=== PATIENT | female | born 1950 | race Caucasian/White ===

== ENCOUNTER → 2018-10-05 | Outpatient (CLI) | payer MEDICARE ==
[~2018-10-05] MED LIST: ASPI-1197 PO; BUPR300T54 PO; CYAN100099 PO; DIAZ5TAB4 PO; GABA-529 PO; PANT40TA25 PO; POTA-79 PO; ROPI1TAB11 PO
== END | disposition home or self-care (01) ==
LOC: SHCH 12:37
PROVIDERS: ATTEND Internal Medicine Cardiovascular Disease
DX: I07.1 Rheumatic tricuspid insufficiency (principal)
CPT/HCPCS: 93306

== ENCOUNTER → 2018-10-11 | Outpatient (CLI) | payer MEDICARE ==
[~2018-10-11] VITALS: Ht 162.6 cm; Wt 91.6 kg
[~2018-10-11] MED LIST changes: +REGADENOSON 0.4 MG/5 ML PF SYG IVP SCH
== END | disposition home or self-care (01) ==
LOC: SHCH 08:29
PROVIDERS: ATTEND Internal Medicine Cardiovascular Disease
DX: R07.9 Chest pain, unspecified (principal)
CPT/HCPCS: 78452; 93017; 96374; A9500 ×2; J2785

== ENCOUNTER → 2019-05-23 | Outpatient (CLI) | payer MEDICARE ==
[~2019-05-23] MED LIST changes: -REGADENOSON 0.4 MG/5 ML PF SYG IVP SCH
== END | disposition home or self-care (01) ==
LOC: RAH 09:43
PROVIDERS: ATTEND Nurse Practitioner Adult Health
DX: N63.13 Unspecified lump in the right breast, lower outer quadrant (principal)
CPT/HCPCS: 76641

== ENCOUNTER 2019-06-22 06:22 | Day surgery (SDC) | payer MEDICARE ==
[2019-06-17 11:50] VITALS: BP 140/74
[2019-06-17 12:09] LABS: BASOPHILS % (AUTO) 0.6 % (0.0-5.0); EOSINOPHILS % (AUTO) 2.4 % (0.0-8.0); HEMATOCRIT 43.2 % (36-48); LYMPHOCYTES % (AUTO) 25.6 % (21.0-51.0); MEAN CORPUSCULAR HEMOGLOBIN 30.6 pg (27.0-33.0); MEAN CORPUSCULAR VOLUME 92.8 fL (79-99); MONOCYTES % (AUTO) 8.9 % (3.0-13.0); NEUTROPHILS % (AUTO) 62.5 % (40.0-77.0); PLATELET COUNT (AUTO) 241 K/uL (130-400); RED BLOOD CELL COUNT(AUTO) 4.65 MIL/uL (4.00-5.50); RED CELL DISTRIBUTION WIDTH 14.1 % (11.0-15.5); WHITE BLOOD COUNT (AUTO) 5.3 K/uL (4.8-10.8)
[2019-06-17 12:24] LABS: CREATININE 0.9 mg/dL (0.5-1.5); POTASSIUM 4.3 mmol/L (3.5-5.1)
[2019-06-22] VITALS (16 sets, daily range): BP systolic 110–122; BP diastolic 49–68
[~2019-06-22] VITALS: Ht 162.6 cm; Wt 93.6 kg
[~2019-06-22 06:22] MED LIST changes: -ASPI-1197 PO; -CYAN100099 PO; +ESCI10TA54 PO; -GABA-529 PO; +IBUP-2077 PO; +MONT10TA24 PO; -POTA-79 PO
[2019-06-22] MEDS ORDERED: LACTATED RINGERS 1000ML 1,000 ML IV ONE (06:55)
[2019-06-22] MEDS ORDERED: CEFAZOLIN SODIUM 1 GM VIAL ONE ×3 (06:56→12:48)
[2019-06-22] MEDS ORDERED: METHYLENE BLUE 5 MG/ML AMP ONE (07:19)
[2019-06-22] MEDS ORDERED: GENTAMICIN SULFATE 80 MG/2 ML VIAL ONE (07:20)
[2019-06-22] MEDS ORDERED: BACITRACIN 50,000 UNIT VIAL ONE (07:20)
[2019-06-22] MEDS ORDERED: LIDOCAINE 1%-EPI 1:100,000 20 ML VIAL IJ ONE (07:22)
[2019-06-22] MEDS: CEFAZOLIN SODIUM 1 GM VIAL IVP ONE ×2 (07:27→09:00)
[2019-06-22] MEDS ORDERED: LIDOCAINE PF 2% 5ML ABBOJECT ONE (07:47)
[2019-06-22] MEDS ORDERED: MIDAZOLAM HCL 1 MG/ML 2ML VIAL ONE (07:47)
[2019-06-22] MEDS ORDERED: SUCCINYLCHOLINE 200MG/10ML SYR ONE (07:47)
[2019-06-22] MEDS ORDERED: DEXAMETHASONE SOD PHOSPHATE 10MG/ML 1ML VIAL ONE (07:47)
[2019-06-22] MEDS ORDERED: CHOL400C9 PO (07:48)
[2019-06-22] MEDS ORDERED: ROSU5TAB12 PO (07:48)
[2019-06-22] MEDS ORDERED: NAPR220C15 PO (07:48)
[2019-06-22] MEDS ORDERED: FENTANYL CITRATE PF 50 MCG/1 ML 2ML VIAL ONE ×2 (07:48→14:02)
[2019-06-22] MEDS ORDERED: ONDANSETRON HCL 4 MG/2 ML VIAL ONE (07:48)
[2019-06-22] MEDS ORDERED: ROCURONIUM 10MG/1ML SYR 10 MG/ML ML ONE ×2 (07:48→12:37)
[2019-06-22] MEDS ORDERED: GLYCOPYRROLATE 1 MG/5 ML SYRINGE ONE ×2 (07:48→13:24)
[2019-06-22] MEDS ORDERED: CYAN250014 PO (07:48)
[2019-06-22] MEDS ORDERED: NEOSTIGMINE 5MG/5ML SYR IV ONE (07:48)
[2019-06-22] MEDS ORDERED: PROPOFOL 10 MG/ML 20ML VIAL IV ONE (07:48)
[2019-06-22] MEDS ORDERED: FERR-82 PO (07:48)
[2019-06-22] MEDS ORDERED: [UNRECOGNIZED DRUG - OTHER] PO (07:48)
[2019-06-22] MEDS ORDERED: BUPIVACAINE/EPI/PF 0.5% 30ML VIAL IJ ONE (07:57)
[2019-06-22] MEDS ORDERED: LIDOCAINE HCL/EPINEPHRINE 50 ML VIAL IJ ONE (07:57)
[2019-06-22] MEDS ORDERED: KETOROLAC TROMETHAMINE 30MG/ML ONE (08:50)
[2019-06-22] MEDS ORDERED: Q-PUMP 1 EACH MISC SCH (09:45)
[2019-06-22] MEDS ORDERED: NITROGLYCERIN 1GM/1 INCH PACKET TD SCH (14:30)
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
== END 2019-06-22 17:00 ==
LOC: SUH 06:22 → DAH 06:22 → SUH 17:00
PROVIDERS: ATTEND Plastic Surgery
DX: T85.44XA Capsular contracture of breast implant, initial encounter (principal); N64.1 Fat necrosis of breast; R92.0 Mammographic microcalcification found on diagnostic imaging of breast; Y83.8 Other surgical procedures as the cause of abnormal reaction of the patient, or of later complication, without mention of misadventure at the time of the procedure; Y92.89 Other specified places as the place of occurrence of the external cause; I10 Essential (primary) hypertension; N64.81 Ptosis of breast; E88.1 Lipodystrophy, not elsewhere classified; Z88.5 Allergy status to narcotic agent; Z90.49 Acquired absence of other specified parts of digestive tract; Z98.890 Other specified postprocedural states; Z87.01 Personal history of pneumonia (recurrent); Z72.89 Other problems related to lifestyle; Z79.899 Other long term (current) drug therapy; Z80.8 Family history of malignant neoplasm of other organs or systems
CPT/HCPCS: 19371; 19380; 36415; 80048; 85025; 85730; 88305; A4215; A4221; A4222; A4223; A4305; A4606; A4649 ×4; A4663; A6206; A6260; A6446; A9272; J0330; J0690 ×3; J1100; J1580; J1885; J2001; J2250; J2405; J2704; J2710; J3010 ×2; J3490 ×4; J7030; J7120 ×2; L8600; Q9968

== ENCOUNTER → 2021-02-20 | Outpatient (CLI) | payer MEDICARE ==
[~2021-02-20] MED LIST changes: +BUPR-317 PO; -BUPR300T54 PO; +CHOL400C9 PO; +CYAN250014 PO; +ESCI-8 PO; -ESCI10TA54 PO; +FERR-82 PO; -MONT10TA24 PO; +MONT10TA32 PO; +NAPR220C15 PO; -PANT40TA25 PO; +PANT40TA54 PO; -ROPI1TAB11 PO; +ROPI1TAB13 PO; +ROSU5TAB12 PO; +[UNRECOGNIZED DRUG - OTHER] PO
== END | disposition home or self-care (01) ==
LOC: RAH 09:13
PROVIDERS: ATTEND Nurse Practitioner Adult Health
DX: R10.13 Epigastric pain (principal); R10.31 Right lower quadrant pain; R05 Cough; K76.0 Fatty (change of) liver, not elsewhere classified; R16.0 Hepatomegaly, not elsewhere classified; Z90.49 Acquired absence of other specified parts of digestive tract; Z90.711 Acquired absence of uterus with remaining cervical stump
CPT/HCPCS: 76700; 76856

== ENCOUNTER → 2021-10-14 | Outpatient (CLI) | payer MEDICARE ==
[~2021-10-14] MED LIST changes: +GADOTERATE MEGLUMINE 10 MMOL/20 ML VIAL IV ONE; +MONT-39 PO; -MONT10TA32 PO
== END | disposition home or self-care (01) ==
LOC: RAH 10:00
PROVIDERS: ATTEND Nurse Practitioner Adult Health
DX: G31.9 Degenerative disease of nervous system, unspecified (principal); R41.82 Altered mental status, unspecified; R25.1 Tremor, unspecified
CPT/HCPCS: 70553; A9575